=== PATIENT | female | born 1960 | race Caucasian/White ===

== ENCOUNTER → 2021-08-11 | Outpatient (CLI) | payer OTHER | LOC: RAD 10:45 | DX: M25.552 Pain in left hip (principal); M25.551 Pain in right hip | CPT/HCPCS: 73522 ==

== ENCOUNTER → 2021-12-16 | Outpatient (CLI) | payer OTHER | LOC: ECHO 08:30 | DX: R79.89 Other specified abnormal findings of blood chemistry (principal); I08.3 Combined rheumatic disorders of mitral, aortic and tricuspid valves; I27.20 Pulmonary hypertension, unspecified | CPT/HCPCS: ECHO; 93306 ==

== ENCOUNTER → 2022-01-10 | Outpatient (CLI) | payer OTHER | LOC: HEART 5 12-27 08:45 | DX: I50.22 Chronic systolic (congestive) heart failure (principal); R06.02 Shortness of breath; R94.30 Abnormal result of cardiovascular function study, unspecified; I20.8 Other forms of angina pectoris | CPT/HCPCS: 78452; A9502; J2785 ==

== ENCOUNTER → 2022-02-21 | Outpatient (CLI) | payer OTHER ==
[~2022-02-21] MED LIST: ATORVASTATIN CA40 MG PO; CARVEDILOL6.25 MG PO; DESVENLAFAXINE50 MG PO; ENTRESTO 49 MG1 EACH PO; GLUCOPHAGE 500500 MG PO; VAZALORE81 MG PO; VITAMIN D375 MCG PO
[2022-02-21 07:35] LABS: HEMOGLOBIN 11.4 gm/dl (12.3-15.3); RED BLOOD COUNT 4.13 M/UL (4.00-5.10); WHITE BLOOD COUNT 4.9 K/UL (4.5-11.0)
[2022-02-21 08:01] LABS: BUN/CREATININE RATIO 19 (0-10)
== END | disposition home or self-care (01) ==
LOC: CATH 06:26
PROVIDERS: Internal Medicine Cardiovascular Disease
DX: I42.0 Dilated cardiomyopathy (principal); I25.119 Atherosclerotic heart disease of native coronary artery with unspecified angina pectoris; I11.0 Hypertensive heart disease with heart failure; I50.22 Chronic systolic (congestive) heart failure; E11.36 Type 2 diabetes mellitus with diabetic cataract; H26.9 Unspecified cataract; E78.00 Pure hypercholesterolemia, unspecified; E07.9 Disorder of thyroid, unspecified; F41.9 Anxiety disorder, unspecified; F32.A Depression, unspecified; Z88.2 Allergy status to sulfonamides; Z79.82 Long term (current) use of aspirin; Z79.84 Long term (current) use of oral hypoglycemic drugs; Z79.899 Other long term (current) drug therapy; Z72.89 Other problems related to lifestyle
CPT/HCPCS: 71045; 80048; 82962; 85025; 85610; 93005; 99152; C1769; C1887; C1894; J1644; J2250; J3010; Q9967

== ENCOUNTER → 2022-03-07 | Outpatient (CLI) | payer OTHER | LOC: ECHO 08:44 | DX: I42.0 Dilated cardiomyopathy (principal) | CPT/HCPCS: ECHO; 93306 ==

== ENCOUNTER → 2022-04-11 | Outpatient (CLI) | payer OTHER | LOC: MAMO 03-29 09:00 → US 15:00 → MAMO 15:30 | DX: R80.9 Proteinuria, unspecified (principal); Z12.31 Encounter for screening mammogram for malignant neoplasm of breast | CPT/HCPCS: 77063; 77067 ==

== ENCOUNTER → 2022-05-09 | Outpatient (CLI) | payer OTHER | LOC: US 04-28 10:00 → MAMO 04-28 10:30 → US 13:30 | DX: R92.8 Other abnormal and inconclusive findings on diagnostic imaging of breast (principal) | CPT/HCPCS: 76641-RT; 77065; G0279 ==